=== PATIENT | female | born 1975 | race Two or more races ===

== ENCOUNTER 2018-04-26 18:57 | Emergency (ER) | payer MEDICAID ==
[~2018-04-26] VITALS: Ht 167.6 cm; Wt 71.7 kg
[2018-04-26 19:07] VITALS: BP 133/79
[2018-04-26] MEDS ORDERED: IBUPROFEN 600 MG TAB PO ONE ×2 (20:26→20:30)
[2018-04-26] MEDS ORDERED: HYDROcodone-ACET 10/325MG TAB PO ONE (20:30)
== END 2018-04-26 21:18 | disposition home or self-care (01) ==
LOC: ER 18:57
DX: S62.501A Fracture of unspecified phalanx of right thumb, initial encounter for closed fracture (principal); V86.59XA Driver of other special all-terrain or other off-road motor vehicle injured in nontraffic accident, initial encounter; Y93.89 Activity, other specified; Y92.488 Other paved roadways as the place of occurrence of the external cause; Y99.8 Other external cause status
CPT/HCPCS: 29125; 73130